=== PATIENT | female | born 1980 | race Caucasian/White ===

== ENCOUNTER 2022-10-05 10:54 | Emergency (ER) | payer OTHER, MEDICAID ==
[2022-10-05] MEDS ORDERED: Sodium Chloride 0.9% 10 ML Syringe FLUSH PRN (13:48)
[2022-10-05] MEDS ORDERED: Iopamidol 612 MG/ML 100 ML Bottle IVPUSH ONE (13:48)
[2022-10-05] MEDS ORDERED: traMADol 50 MG Tab PO ONE (16:31)
[2022-10-05] MEDS ORDERED: traMADol 50 MG Tab ONE (16:32)
== END 2022-10-05 16:47 | disposition home or self-care (01) ==
LOC: JD.ED 10:54
DX: K02.9 Dental caries, unspecified (principal); Z88.6 Allergy status to analgesic agent; Z88.5 Allergy status to narcotic agent; Z88.0 Allergy status to penicillin
CPT/HCPCS: 36415; 70487; 80053; 85025; 99284; A9270; J3490; Q9967